=== PATIENT | female | born 1965 | race Two or more races ===

== ENCOUNTER 2025-02-16 16:42 | Emergency (ER) | payer BC, MEDICAID ==
[~2025-02-16] VITALS: Ht 154.9 cm; Wt 70.2 kg
[2025-02-16 17:00] VITALS: PULSE 99; RESP 19; O2SAT 99
--- NOTE | 2025-02-16 17:02 | ED.PDOC ---
HPI (NEURO) HPI Comments 59-year-old female presents with a chief complaint of left-sided facial weakness x 10 minutes prior to arrival. Patients son mentions that patient received bad news about a family matter and then began to have left-sided facial drooping. Patient is normally able to talk at baseline, but now is having slurred speech and an impairment. Patient also states that she is unable to swallow her saliva. Patient is hypertensive in triage at 213/134, but does not take any medications or known history of HTN. PMHx: Asthma PSHx: Denies HPI: Poor Historian. REVIEW OF SYSTEMS: CONSTITUTIONAL: Denies acute: fever, diaphoresis, chills, HEAD: Denies acute: headache, photophobia Eyes: Denies acute: Double vision, vision loss, eye pain, eye discharge. EARS: Denies acute: tinnitus, hearing loss, ear discharge, ear pain, THROAT: Denies acute: sore throat, swelling, difficulty swallowing , pain with swallowing, change in voice. NECK: Denies acute: neck pain, neck swelling, stiff neck. HEART: Denies acute : chest pain, palpitations, LUNGS: Denies acute: SOB, wheezing, cough, hemoptysis ABDOMEN: Denies acute: abdominal pain, Nausea, Vomiting, diarrhea, melena , hematemesis, hematochezia SKIN: Denies acute: rash, redness, lesions, itchiness. EXTREMITIES: Denies acute: calf pain, numbness, tingling, weakness, denies pain in extremity. Denies acute: Low back pain. Neuro: Denies acute: tremors, seizure like activity, confusion, dizziness, change in mental status, loss of bowel or bladder function, cauda equina like symptoms. : Denies acute: dysuria, hematuria, flank pain, increase in urinary frequency. PSYCH: Denies acute: hallucination, suicidal ideation, homicidal ideation. FEMALE: Denies acute: abnormal vaginal bleeding, foul odor, unusual discharge. PHYSICAL EXAM: General: ----moderate----acute distress, awake and alert. Head: normocephalic, atraumatic. Neck: supple, trachea is midline, no swelling. Throat: Normal phonation. Eyes:, no erythema, no purulent discharge, no proptosis, no icterus. Heart: regular rate, regular rhythm, no significant murmur appreciated. Lungs: no apparent respiratory distress, No wheezing, no rhonchi, no crackles. No stridors Clear to auscultation bilaterally. Abdomen: non tender to palpation, non distended, soft, no guarding, no rebound, + bowel sounds. Neuro: Awake, Alert, oriented to name, self, situation, follows commands GCS=15. Slurred speech Skin: no petechia, no purpura, no cyanosis, non-pale, not jaundice. Lower extremities: --no - Pitting edema no deformity, no focal swelling, no calf TTP. Makes eye contact. moves all four extremities. Face: Noted facial droop Ambulating in the ED independently. Stroke: finger to nose cerebellar testing is intact. No pronator drift. 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 No nystagmus. No nuchal rigidity, Kernig's sign, Brudzinski's sign, no meningeal signs. ED COURSE: DISCLAIMER: This medical document was created using an electronic medical record system with voice recognition software and computerized dictation system. Although this document has been carefully reviewed, there might still be some phonetic and t ypographical errors. Occasional wrong-word or "sound-alike" substitutions may have occurred due to the inherent limitations of voice recognition software. These areas are purely typographical due to imperfections of the software programs and do not reflect any compromise in the patient's medical care. Please read the chart carefully and recognize, using context, where these substitutions have occurred. 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 Was a procedure done?: No Differential Diagnosis (SZ) Seizure: N/A CVA: Other (Stroke: DDX include TIA, TGA, CVA, intracranial bleed/mass/infection, cerebellar ischemia/infarct, carotid stenosis, lacunar infarct, vertebral/carotid artery dissection,, vertebrobasillary insufficiency, BPV, encephalopathy, electrolyte abnormality, thyroid disease, hydrocephalus, [place] palsy, multiple sclerosis, hypoglycemia, drug toxicity, cardiac arrhythmia, todds paralysis, seizure.) X-Ray, Labs, Meds, VS Vital Signs Date Time Temp Pulse Resp B/P (MAP) Pulse Ox O2 Delivery O2 Flow Rate FiO2 02/16/25 18:24 99 155/92 02/16/25 18:23 99 171/113 02/16/25 18:19 99.2 99 17 155/92 (113) 99 99.2 02/16/25 18:00 99 Nasal Cannula* 2 28 02/16/25 17:45 89 13 182/103 (129) 100 02/16/25 17:33 80 171/113 02/16/25 17:30 88 16 171/113 (132) 97 02/16/25 17:24 84 204/119 02/16/25 17:16 86 02/16/25 17:15 89 18 204/119 (147) 98 02/16/25 17:00 99 19 99 Nasal Cannula* 2 28 02/16/25 16:45 98.1 102 18 213/134 (160) 95 98.1 211/124 (153) Lab Test 02/16/25 18:17 02/16/25 17:12 02/16/25 16:54 Range/Units POC Glucose 110 H 111 H 70-106 mg/dl White Blood Count 8.6 4.4-10.8 10^3/uL Red Blood Count 4.46 4.0-5.20 10^6/uL Hemoglobin 13.6 12.2-16.2 g/dL Hematocrit 40.3 36.0-46.0 % Mean Corpuscular Volume 90.3 80.0-100.0 fL Mean Corpuscular Hemoglobin 30.5 28.0-32.0 pg Mean Corpuscular Hemoglobin Concent 33.8 32.0-36.0 g/dL Red Cell Distribution Width 13.7 11.8-14.3 % Platelet Count 320 140-450 10^3/uL Mean Platelet Volume 8.9 6.9-10.8 fL Neutrophils (%) (Auto) 72.8 37.0-80.0 % Lymphocytes (%) (Auto) 13.7 10.0-50.0 % Monocytes (%) (Auto) 10.1 0.0-12.0 % Eosinophils (%) (Auto) 2.8 0.0-7.0 % Basophils (%) (Auto) 0.6 0.0-2.0 % Neutrophils # (Auto) 6.3 1.6-8.6 10 ^3/uL Lymphocytes # (Auto) 1.2 0.4-5.4 10 ^3/uL Monocytes # (Auto) 0.9 0-1.3 10 ^3/uL Eosinophils # (Auto) 0.2 0-0.8 10 ^3/uL Basophils # (Auto) 0.1 0-0.2 10 ^3/uL Nucleated Red Blood Cells 0.1 % Prothrombin Time 10.9 9.3-11.8 sec Prothrombin Time INR 1.03 0.9-1.15 Activated Partial Thromboplast Time 27.8 24.5-34.5 SEC Sodium Level 140 136-145 mmol/L Potassium Level 3.7 3.5-5.1 mmol/L Chloride Level 106 98-107 mmol/L Carbon Dioxide Level 26 20-31 mmol/L Anion Gap 8 5-15 Blood Urea Nitrogen 18 9-23 mg/dL Creatinine 0.92 0.550-1.02 mg/dL Glomerular Filtration Rate Calc 71 >90 mL/min BUN/Creatinine Ratio 19.6 10.0-20.0 Serum Glucose 103 74-106 mg/dL Calcium Level 10.4 8.7-10.4 mg/dL Magnesium Level 2.1 1.6-2.6 mg/dL Total Bilirubin 0.5 0.2-1.0 mg/dL Aspartate Amino Transferase (AST) 20 13-40 U/L Alanine Aminotransferase (ALT) 13 7-40 U/L Alkaline Phosphatase 114 46-116 U/L Troponin I High Sensitivity 5 </=34 ng/L B-Type Natriuretic Peptide 86.38 0-100 pg/mL Total Protein 7.2 5.7-8.2 g/dL Albumin 4.4 3.2-4.8 g/dL [facility] [place] [facility] [id number] [facility] [id number] Ph: [phone] DIAGNOSTIC IMAGING Diagnostic Imaging Report : [id number] Signed 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 Radiation Dose Information: CT Dose: CTDI volume 53.7 mGy. Dose-length product is 950.95 mGy*cm The dose indicators for CT are the volume Computed Tomography (CT) Dose Index (CTDIvol) and the Dose Length Product (DLP), and are measured in units of mGy and mGy-cm, respectively. These indicators are not patient dose, but values generated from the CT scanner acquisition factors. The report includes radiation exposure data for exposures received during this examination. COMPARISON: None FINDINGS: There is no evidence of acute intracranial hemorrhage, extra-axial collection, mass effect, midline shift, herniation or hydrocephalus. A 2.4 cm area of hemorrhage in the mid right parietal lobe some surrounding vasogenic edema. The ventricles, sulci and cisterns are age appropriate. The singh-white differentiation is intact. Patchy periventricular and subcortical white matter hypoattenuation is nonspecific but may be related to small vessel ischemic disease. The visualized paranasal sinuses and mastoid air cells are clear. The surrounding soft tissues and osseous structures are unremarkable. IMPRESSION: 1. 2.4 cm intraparenchymal hemorrhage mid right parietal lobe with vasogenic edema. 2. No significant midline shift. 3. No other areas of hemorrhage CRITICAL FINDINGS Critical Result: 2.4 CM INTRAPARENCHYMAL HEMORRHAGE MID RIGHT PARIETAL LOBE Findings discussed with Dr Tariq , at 02/16/2025 05:26 PM, and acknowledged receipt and understanding of the findings. ATED BY: NIKOS SALMON Jr., DO DICTATED DATE/TIME: 02/16/25 [id number] SIGNED BY: NIKOS SALMON Jr. DO SIGNED DATE/TIME: 02/16/25 1736 CC: Time of 1ST Reevaluation: 16:50 Reevaluation 1ST: Unchanged Time of 2ND Reevaluation: 17:06 (The case was discussed with the neuro on-call team (HPI, physical exam, labs and diagnostic tests that were available at the time of disposition, ED course, treatment plan) on the phone. They agreed to evaluate the patient on camera. They recommend nicardipine drip can maintain blood pressure systolic below 150.) Time of 3RD Reevaluation: 17:25 (The case was discussed with the [facility] higher level of care team (HPI, physical exam, labs and diagnostic tests that were available at the time of disposition, ED course, treatment plan) on the phone. They agreed to accept the patient to their facility for neurosurgical and neurology intervention. Accepting ER physician is Dr. Sales. Patient is not on any blood thinners. Patient was ordered labetalol and nicardipine drip.) Reevaluation 3RD: Unchanged Patient Education/Counseling: Diagnosis, Treatment Family Education/Counseling: Diagnosis, Treatment Comments MDM: patient presented with the above HPI.---stroke-like symptoms---workup was initiated. patient was found with the above mentioned diagnosis. Code stroke was activated in triage. the following medications were ordered: please refer to order lists of meds and tests obtained by myself Dr. Tariq. Patient ED course and VS have been stabilized. Patient has been reassessed in the ED and remained in a stable condition. Pertinent incidental findings were discussed with the patient and/or family. Patient/family voices understanding and is agreeable with plan. Patient has been observed in the ED adequate length of time to insure improvement/stability. Escalation of care considered: Consideration of escalation to observation or admission Neurology was consulted who evaluated the patient by tele neuro. CT scan shows hemorrhagic stroke. Labetalol and nicardipine drip were initiated with blood pressure parameters of less than 140 systolic. Patient was transferred to higher level of care for further evaluation and treatment of their presentation. Patient was transferred by helicopter All the reports of any imaging studies that were ordered by myself were reviewed by myself. Departure 1 Departure Time of Disposition: 17:19 Impression: Primary Impression: Hemorrhagic stroke Additional Impression: Hypertensive emergency Disposition: 02 SHORT TERM HOSPITAL Admit to: Tele Condition: Critical Discharged With: Self Critical Care Note Critical Care Time?: Yes (1 hr-critical care time only) I personally scribed for QUENTIN TARIQ DO ([email or web address]) on 02/16/25 at 17:02. Electronically submitted by Uziel Cha ([email or web address]). QUENTIN TARIQ DO Feb 16, 2025 17:02
[2025-02-16] MEDS: LABETALOL HCL 20 MG/4 ML VL IV ONE ×2 (17:24→18:23)
[2025-02-16 17:25] LABS: Hematocrit 40.3 % (36.0-46.0); Hemoglobin 13.6 g/dL (12.2-16.2); Mean Corpuscular Hemoglobin 30.5 pg (28.0-32.0); Mean Corpuscular Volume 90.3 fL (80.0-100.0); Nucleated Red Blood Cells % 0.1 %
[2025-02-16 17:37] LABS: INR 1.03 (0.9-1.15); Partial Thromboplastin Time 27.8 SEC (24.5-34.5); Prothrombin Time 10.9 sec (9.3-11.8)
--- NOTE | 2025-02-16 17:38 | DVH ---
EXAM: CT STROKE CTH INDICATION: stroke like symptoms TECHNIQUE: CT of the head without intravenous contrast. Radiation Dose Information: CT Dose: CTDI volume 53.7 mGy. Dose-length product is 950.95 mGy*cm The dose indicators for CT are the volume Computed Tomography (CT) Dose Index (CTDIvol) and the Dose Length Product (DLP), and are measured in units of mGy and mGy-cm, respectively. These indicators are not patient dose, but values generated from the CT scanner acquisition factors. The report includes radiation exposure data for exposures received during this examination. COMPARISON: None FINDINGS: There is no evidence of acute intracranial hemorrhage, extra-axial collection, mass effect, midline s hift, herniation or hydrocephalus. A 2.4 cm area of hemorrhage in the mid right parietal lobe some surrounding vasogenic edema. The ventricles, sulci and cisterns are age appropriate. The singh-white differentiation is intact. Patchy periventricular and subcortical white matter hypoattenuation is nonspecific but may be related to small vessel ischemic disease. The visualized paranasal sinuses and mastoid air cells are clear. The surrounding soft tissues and osseous structures are unremarkable. IMPRESSION: 1. 2.4 cm intraparenchymal hemorrhage mid right parietal lobe with vasogenic edema. 2. No significant midline shift. 3. No other areas of hemorrhage CRITICAL FINDINGS Critical Result: 2.4 CM INTRAPARENCHYMAL HEMORRHAGE MID RIGHT PARIETAL LOBE Findings discussed with Dr Downey , at 02/16/2025 05:26 PM, and acknowledged receipt and understanding of the findings.
[2025-02-16 17:42] LABS: Alanine Aminotransferase 13 U/L (7-40); Albumin 4.4 g/dL (3.2-4.8); Alkaline Phosphatase 114 U/L (46-116); Anion Gap 8 (5-15); BUN/Creatinine Ratio 19.6 (10.0-20.0); Blood Urea Nitrogen 18 mg/dL (9-23); Carbon Dioxide 26 mmol/L (20-31); Chloride 106 mmol/L (98-107); Glucose 103 mg/dL (74-106); Magnesium 2.1 mg/dL (1.6-2.6); Potassium 3.7 mmol/L (3.5-5.1); Sodium 140 mmol/L (136-145); Total Protein 7.2 g/dL (5.7-8.2)
[2025-02-16 17:43] LABS: Bilirubin, Total 0.5 mg/dL (0.2-1.0)
--- NOTE | 2025-02-16 17:48 | DVH ---
CHEST RADIOGRAPH Indication: stroke like symptoms Technique: Single frontal view of the chest was obtained Comparison: None FINDINGS: Lines and Tubes: None Lungs: No focal consolidation. Pleura: No effusion. No pneumothorax. Cardiomediastinal contours: Unremarkable Bones: No acute osseous abnormality. IMPRESSION: 1. No acute cardiopulmonary disease.
[2025-02-16 17:57] LABS: Calcium 10.4 mg/dL (8.7-10.4)
[2025-02-16 18:19] VITALS: BP 155/92; PULSE 99; RESP 17; TEMP 99.2; O2SAT 99
--- NOTE | 2025-02-16 18:47 | ECG ---
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
== END 2025-02-16 18:43 | disposition short-term general hospital (02) ==
LOC: EDBD 16:42 → ER 16:42
DX: I62.9 Nontraumatic intracranial hemorrhage, unspecified (principal); I16.1 Hypertensive emergency; J45.909 Unspecified asthma, uncomplicated; I10 Essential (primary) hypertension
CPT/HCPCS: 36415; 70450; 71045; 80053; 82947; 82962; 83735; 83880; 84484; 85025; 85610; 85730; 93005; 96374; 96376